=== PATIENT | female | born 2000 | race Caucasian/White ===

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

== ENCOUNTER 2022-08-07 07:24 | Emergency (ER) | payer OTHER ==
[~2022-08-07] VITALS: Ht 162.6 cm; Wt 65.5 kg
[~2022-08-07 07:24] MED LIST: ONDA4TAB6 PO
[2022-08-07 07:25] VITALS: BP 129/99
[2022-08-07] MEDS ORDERED: BACT800T5 PO (11:30)
[2022-08-07] MEDS ORDERED: PYRI1TAB5 PO (11:33)
== END 2022-08-07 11:47 | disposition home or self-care (01) ==
LOC: M ED 07:24
DX: N39.0 Urinary tract infection, site not specified (principal); B95.8 Unspecified staphylococcus as the cause of diseases classified elsewhere

== ENCOUNTER 2022-08-10 12:10 | Emergency (ER) | payer OTHER ==
[~2022-08-10] VITALS: Ht 162.6 cm; Wt 64.4 kg
[~2022-08-10 12:10] MED LIST changes: +BACT800T5 PO; +PYRI1TAB5 PO
[2022-08-10 17:06] LABS: BASO # 0.1 10^3/uL (0.0-0.2); BASO % 0.5 % (0.0-1.0); EOS # 0.1 10^3/uL (0.0-0.5); EOS % 0.7 % (0.0-3.0); HEMATOCRIT 49.5 % (36.0-47.0); HEMOGLOBIN 16.4 g/dl (12.0-15.5); LYMPH # 1.9 10^3/uL (1.5-5.0); LYMPH % 19.7 % (24.0-44.0); MEAN CORPUSCULAR HEMOGLOBIN 29.2 pg (27.0-33.0); MEAN CORPUSCULAR HGB CONC 33.1 g/dl (32.0-36.5); MEAN CORPUSCULAR VOLUME 88.2 fl (80.0-96.0); MONO # 0.5 10^3/uL (0.0-0.8); MONO % 5.5 % (2.0-8.0); NEUTROPHILS # 6.9 10^3/uL (1.5-8.5); NEUTROPHILS % 73.4 % (36.0-66.0); PLATELET COUNT, AUTOMATED 304 10^3/uL (150-450); RED BLOOD COUNT 5.61 10^6/uL (4.00-5.40); WHITE BLOOD COUNT 9.4 10^3/uL (4.0-10.0)
[2022-08-10] MEDS ORDERED: ZOLO50TA PO (17:08)
[2022-08-10] MEDS ORDERED: NS 1,000 ML IV ONE (17:35)
[2022-08-10] MEDS ORDERED: KETOROLAC 30 MG/ML 1ML VIAL IV ONE (17:35)
[2022-08-10 17:39] LABS: BLOOD UREA NITROGEN 15 MG/DL (9-23); CALCIUM LEVEL 9.8 MG/DL (8.5-10.1); CARBON DIOXIDE LEVEL 24 MMOL/L (20-31); CHLORIDE LEVEL 100 MMOL/L (98-107); CREATININE FOR GFR 0.74 MG/DL (0.55-1.30); GLUCOSE, FASTING 73 MG/DL (60-100); POTASSIUM SERUM 4.2 MMOL/L (3.5-5.1); SODIUM LEVEL 135 MMOL/L (136-145)
[2022-08-10 18:18] VITALS: BP 132/80
[2022-08-10] MEDS ORDERED: CIPR-249 PO ×2 (18:18→18:23)
== END 2022-08-10 18:32 | disposition home or self-care (01) ==
LOC: M ED 12:10
DX: N39.0 Urinary tract infection, site not specified (principal); Z79.899 Other long term (current) drug therapy

== ENCOUNTER 2022-08-31 17:44 | Inpatient (IN) | payer OTHER ==
[~2022-08-31] VITALS: Ht 162.6 cm; Wt 62.8 kg
[~2022-08-31 17:44] MED LIST changes: +CIPR-249 PO; +ZOLO50TA PO
[2022-08-31 18:28] LABS: HEMATOCRIT 45.7 % (36.0-47.0); HEMOGLOBIN 15.3 g/dl (12.0-15.5); MEAN CORPUSCULAR HEMOGLOBIN 29.8 pg (27.0-33.0); MEAN CORPUSCULAR HGB CONC 33.5 g/dl (32.0-36.5); MEAN CORPUSCULAR VOLUME 89.1 fl (80.0-96.0); PLATELET COUNT, AUTOMATED 281 10^3/uL (150-450); RED BLOOD COUNT 5.13 10^6/uL (4.00-5.40); WHITE BLOOD COUNT 8.5 10^3/uL (4.0-10.0)
[2022-08-31] MEDS ORDERED: SERT150C PO (18:43)
[2022-08-31 19:12] LABS: ETHYL ALCOHOL (ETHANOL) 0.006 % (0.000-0.010)
[2022-08-31 19:13] LABS: ACETAMINOPHEN LEVEL < 2.0 UG/ML (10.0-20.0)
[2022-08-31 19:14] LABS: ALBUMIN 4.1 G/DL (3.2-5.2); ALKALINE PHOSPHATASE 68 U/L (46-116); ALT/SGPT 14 U/L (7.0-40); AST/SGOT 20 U/L (<34); BILIRUBIN,DIRECT < 0.1 MG/DL (<0.4); BILIRUBIN,TOTAL 0.3 MG/DL (0.3-1.2); BLOOD UREA NITROGEN 13 MG/DL (9-23); CARBON DIOXIDE LEVEL 27 MMOL/L (20-31); CHLORIDE LEVEL 103 MMOL/L (98-107); CREATININE FOR GFR 0.67 MG/DL (0.55-1.30); GLUCOSE, FASTING 92 MG/DL (60-100); POTASSIUM SERUM 3.7 MMOL/L (3.5-5.1); SALICYLATE LEVEL < 3.0 MG/DL (<30); SODIUM LEVEL 138 MMOL/L (136-145); TOTAL PROTEIN 7.6 G/DL (5.7-8.2)
[2022-08-31 19:18] LABS: HCG, SERUM QUALITATIVE NEGATIVE (NEGATIVE); THYROID STIMULATING HORMONE 1.183 uIU/ML (0.48-4.17)
[2022-08-31 19:59] LABS: AMPHETAMINES LEVEL URINE NEGATIVE (NEGATIVE)
[2022-08-31 20:00] LABS: BARBITURATES URINE NEGATIVE (NEGATIVE); BENZODIAZEPINES URINE NEGATIVE (NEGATIVE); CANNABINOIDS URINE NEGATIVE (NEGATIVE); COCAINE METABOLITE URINE NEGATIVE (NEGATIVE); METHADONE URINE NEGATIVE (NEGATIVE); OPIATES URINE NEGATIVE (NEGATIVE); PHENCYCLIDINE URINE NEGATIVE (NEGATIVE)
[2022-08-31] MEDS ORDERED: RIBO400T PO (20:18)
[2022-08-31] MEDS ORDERED: FERR1TAB8 PO (20:18)
[2022-08-31] MEDS ORDERED: MELA3TAB49 PO (20:18)
[2022-08-31] MEDS ORDERED: MAGN200T PO (20:18)
[2022-08-31] MEDS ORDERED: VITA500C24 PO (20:18)
[2022-08-31] MEDS ORDERED: HOME MED LIST COMPLETE! XX SCH (20:20)
[2022-08-31] MEDS: ASCORBIC ACID 500 MG TAB PO SCH (22:46)
[2022-08-31] MEDS: SERTRALINE HCL 50 MG TAB PO SCH (22:46)
[2022-08-31] MEDS: FERROUS SULFATE 325MG TAB PO SCH (22:46)
[2022-09-01] MEDS: ASCORBIC ACID 500 MG TAB PO SCH ×2 (10:27→21:30)
[2022-09-01] MEDS: FERROUS SULFATE 325MG TAB PO SCH ×2 (10:27→21:30)
[2022-09-01] MEDS: MAGNESIUM OXIDE 400MG TAB (MAG-OX) PO SCH (10:27)
[2022-09-01] MEDS: SERTRALINE HCL 50 MG TAB PO SCH (21:30)
[2022-09-02] MEDS: FERROUS SULFATE 325MG TAB PO SCH ×2 (08:08→22:11)
[2022-09-02] MEDS: MAGNESIUM OXIDE 400MG TAB (MAG-OX) PO SCH (08:08)
[2022-09-02] MEDS: ASCORBIC ACID 500 MG TAB PO SCH ×2 (08:08→22:11)
[2022-09-02] MEDS: SERTRALINE HCL 50 MG TAB PO SCH (22:11)
[2022-09-03] MEDS ORDERED: PILL CUTTER 1 EACH XX ONE (10:51)
[2022-09-03] MEDS: FERROUS SULFATE 325MG TAB PO SCH ×2 (10:52→20:24)
[2022-09-03] MEDS: MAGNESIUM OXIDE 400MG TAB (MAG-OX) PO SCH (10:53)
[2022-09-03] MEDS: ASCORBIC ACID 500 MG TAB PO SCH ×2 (10:53→20:24)
[2022-09-03 12:15] LABS: RSV AMPLIFICATION NEGATIVE (NEGATIVE)
[2022-09-03] MEDS ORDERED: MAALOX 30 ML SUSP *UDC PO PRN (16:40)
[2022-09-03] MEDS ORDERED: ACETAMINOPHEN TAB 650MG DOSE (2X325MG) PO PRN (16:40)
[2022-09-03] MEDS ORDERED: MOM 30ML SUSPENSION UDC PO PRN (16:40)
[2022-09-03] MEDS ORDERED: NICOTINE 21MG/24HR 1 EA TRANSDERMAL TD PRN (16:40)
[2022-09-03] MEDS ORDERED: traZODone 50 MG TAB PO PRN (16:40)
[2022-09-03 18:09] VITALS: BP 129/73
[2022-09-03] MEDS: SERTRALINE HCL 50 MG TAB PO SCH (20:24)
[2022-09-04 06:00] VITALS: BP 160/60
[2022-09-04] MEDS: FERROUS SULFATE 325MG TAB PO SCH ×2 (09:00→21:10)
[2022-09-04] MEDS: MAGNESIUM OXIDE 400MG TAB (MAG-OX) PO SCH (09:00)
[2022-09-04] MEDS: busPIRone 5 MG TAB PO SCH ×2 (11:57→21:10)
[2022-09-04 18:09] VITALS: BP 111/60
[2022-09-04] MEDS: SERTRALINE HCL 50 MG TAB PO SCH (21:10)
[2022-09-04] MEDS: MIRTAZAPINE 15 MG TAB PO SCH (21:10)
[2022-09-05 06:07] VITALS: BP 109/55
[2022-09-05] MEDS: FERROUS SULFATE 325MG TAB PO SCH ×2 (09:01→21:20)
[2022-09-05] MEDS: MAGNESIUM OXIDE 400MG TAB (MAG-OX) PO SCH (09:03)
[2022-09-05] MEDS: busPIRone 5 MG TAB PO SCH ×2 (09:03→21:20)
[2022-09-05 19:09] VITALS: BP 125/64
[2022-09-05] MEDS: MIRTAZAPINE 15 MG TAB PO SCH (21:20)
[2022-09-05] MEDS: SERTRALINE HCL 50 MG TAB PO SCH (21:20)
[2022-09-06 07:01] VITALS: BP 120/58
[2022-09-06] MEDS: busPIRone 5 MG TAB PO SCH ×2 (09:01→20:00)
[2022-09-06] MEDS: FERROUS SULFATE 325MG TAB PO SCH ×2 (09:01→19:59)
[2022-09-06] MEDS: MAGNESIUM OXIDE 400MG TAB (MAG-OX) PO SCH (09:02)
[2022-09-06] MEDS ORDERED: BUSP5TA PO (09:30)
[2022-09-06] MEDS ORDERED: MIRT-10 PO (09:30)
[2022-09-06] MEDS ORDERED: HYDR-643 PO (09:30)
[2022-09-06 17:45] VITALS: BP 125/57
[2022-09-06] MEDS: SERTRALINE HCL 50 MG TAB PO SCH (19:59)
[2022-09-06] MEDS: MIRTAZAPINE 15 MG TAB PO SCH (20:00)
[2022-09-07 06:20] VITALS: BP 100/62
[2022-09-07] MEDS: MAGNESIUM OXIDE 400MG TAB (MAG-OX) PO SCH (08:46)
[2022-09-07] MEDS: FERROUS SULFATE 325MG TAB PO SCH (08:46)
[2022-09-07] MEDS: busPIRone 5 MG TAB PO SCH (08:46)
== END 2022-09-07 10:28 | disposition home or self-care (01) | DRG 885 ==
LOC: M ED 17:44 → M ED INP 09-03 16:37 → M PSY 09-03 17:40
PROVIDERS: ADMIT Psychiatry & Neurology Psychiatry; ATTEND Psychiatry & Neurology Psychiatry
DX: F32.1 Major depressive disorder, single episode, moderate (principal); R45.851 Suicidal ideations; F43.10 Post-traumatic stress disorder, unspecified; F41.9 Anxiety disorder, unspecified; G47.00 Insomnia, unspecified; Z91.52 Personal history of nonsuicidal self-harm; Z62.810 Personal history of physical and sexual abuse in childhood; Z63.5 Disruption of family by separation and divorce; Z91.410 Personal history of adult physical and sexual abuse; Z91.411 Personal history of adult psychological abuse; Z20.822 Contact with and (suspected) exposure to COVID-19; Z79.899 Other long term (current) drug therapy; Z63.8 Other specified problems related to primary support group

== ENCOUNTER 2022-12-25 17:53 | Inpatient (IN) | payer OTHER ==
[~2022-12-25] VITALS: Ht 162.6 cm; Wt 71.6 kg
[~2022-12-25 17:53] MED LIST changes: +BUSP5TA PO; +FERR1TAB8 PO; +HYDR-643 PO; +MAGN200T PO; +MELA3TAB49 PO; +MIRT-10 PO; +RIBO400T PO; +SERT150C PO; +VITA500C24 PO
[2022-12-25 19:01] LABS: HEMATOCRIT 44.9 % (36.0-47.0); HEMOGLOBIN 15.1 g/dl (12.0-15.5); MEAN CORPUSCULAR HEMOGLOBIN 30.3 pg (27.0-33.0); MEAN CORPUSCULAR HGB CONC 33.6 g/dl (32.0-36.5); MEAN CORPUSCULAR VOLUME 90.2 fl (80.0-96.0); PLATELET COUNT, AUTOMATED 260 10^3/uL (150-450); RED BLOOD COUNT 4.98 10^6/uL (4.00-5.40); WHITE BLOOD COUNT 7.6 10^3/uL (4.0-10.0)
[2022-12-25 19:21] LABS: ETHYL ALCOHOL (ETHANOL) < 0.003 % (0.000-0.010)
[2022-12-25 19:22] LABS: ACETAMINOPHEN LEVEL < 2.0 UG/ML (10.0-20.0); HCG, SERUM QUALITATIVE NEGATIVE (NEGATIVE); SALICYLATE LEVEL < 3.0 MG/DL (<30)
[2022-12-25 19:23] LABS: ALBUMIN 4.2 G/DL (3.2-5.2); ALKALINE PHOSPHATASE 60 U/L (46-116); ALT/SGPT 15 U/L (7.0-40); AST/SGOT 14 U/L (<34); BILIRUBIN,DIRECT 0.2 MG/DL (<0.4); BILIRUBIN,TOTAL 0.6 MG/DL (0.3-1.2); BLOOD UREA NITROGEN 15 MG/DL (9-23); CALCIUM LEVEL 8.9 MG/DL (8.5-10.1); CARBON DIOXIDE LEVEL 28 MMOL/L (20-31); CHLORIDE LEVEL 106 MMOL/L (98-107); CREATININE FOR GFR 0.76 MG/DL (0.55-1.30); GLUCOSE, FASTING 83 MG/DL (60-100); POTASSIUM SERUM 4.4 MMOL/L (3.5-5.1); SODIUM LEVEL 143 MMOL/L (136-145); TOTAL PROTEIN 7.3 G/DL (5.7-8.2)
[2022-12-25 19:26] LABS: THYROID STIMULATING HORMONE 1.243 uIU/ML (0.48-4.17)
[2022-12-25 21:58] LABS: AMPHETAMINES LEVEL URINE NEGATIVE (NEGATIVE); BARBITURATES URINE NEGATIVE (NEGATIVE); BENZODIAZEPINES URINE NEGATIVE (NEGATIVE); CANNABINOIDS URINE NEGATIVE (NEGATIVE); COCAINE METABOLITE URINE NEGATIVE (NEGATIVE); METHADONE URINE NEGATIVE (NEGATIVE); OPIATES URINE NEGATIVE (NEGATIVE); PHENCYCLIDINE URINE NEGATIVE (NEGATIVE)
[2022-12-26] MEDS ORDERED: MAGN400T35 PO (00:22)
[2022-12-26] MEDS ORDERED: MULTTAB20 PO (00:22)
[2022-12-26] MEDS ORDERED: VITA100093 PO (00:22)
[2022-12-26] MEDS ORDERED: TRAN650T PO (00:23)
[2022-12-26] MEDS ORDERED: HOME MED LIST COMPLETE! XX SCH (00:25)
[2022-12-26] MEDS ORDERED: ACETAMINOPHEN TAB 650MG DOSE (2X325MG) PO PRN (06:50)
[2022-12-26] MEDS ORDERED: NICOTINE 21MG/24HR 1 EA TRANSDERMAL TD PRN (06:50)
[2022-12-26] MEDS ORDERED: traZODone 50 MG TAB PO PRN (06:50)
[2022-12-26] MEDS ORDERED: MOM 30ML SUSPENSION UDC PO PRN (06:50)
[2022-12-26] MEDS ORDERED: MAALOX 30 ML SUSP *UDC PO PRN (06:50)
[2022-12-26] MEDS ORDERED: LORazepam 1 MG TAB PO PRN (06:50)
[2022-12-26 10:17] VITALS: BP 113/63; TEMP 97.9; O2SAT 99
[2022-12-26] MEDS ORDERED: TRANEXAMIC ACID 650MG TABLET (LYSTEDA) PO SCH (16:00)
[2022-12-26 18:07] VITALS: BP 108/57; TEMP 97.3; O2SAT 99
[2022-12-26] MEDS: MIRTAZAPINE 15 MG TAB PO SCH (21:29)
[2022-12-26] MEDS: FERROUS SULFATE 325MG TAB PO SCH (21:29)
[2022-12-26] MEDS: ASCORBIC ACID 500 MG TAB PO SCH (21:29)
[2022-12-27 06:34] VITALS: BP 127/62; TEMP 98.2; O2SAT 98
[2022-12-27] MEDS ORDERED: ENTER DRUG NAME HERE (PATIENT'S OWN MED) PO SCH (09:00)
[2022-12-27] MEDS: MAGNESIUM OXIDE 400MG TAB (MAG-OX) PO SCH (09:25)
[2022-12-27] MEDS: ASCORBIC ACID 500 MG TAB PO SCH ×2 (09:25→20:42)
[2022-12-27] MEDS: VITAMIN D 1,000 INTERNATIONAL UNITS TABLET PO SCH (09:25)
[2022-12-27] MEDS: FERROUS SULFATE 325MG TAB PO SCH ×2 (09:25→20:42)
[2022-12-27 18:07] VITALS: BP 124/68; TEMP 96.8
[2022-12-27] MEDS: MIRTAZAPINE 15 MG TAB PO SCH (20:42)
[2022-12-28 06:36] VITALS: BP 116/68; TEMP 96.9; O2SAT 100
[2022-12-28] MEDS: MAGNESIUM OXIDE 400MG TAB (MAG-OX) PO SCH (09:06)
[2022-12-28] MEDS: ASCORBIC ACID 500 MG TAB PO SCH ×2 (09:06→20:31)
[2022-12-28] MEDS: FERROUS SULFATE 325MG TAB PO SCH ×2 (09:06→20:31)
[2022-12-28] MEDS: VITAMIN D 1,000 INTERNATIONAL UNITS TABLET PO SCH (09:06)
[2022-12-28] MEDS: FLUoxetine 10 MG CAP PO SCH (11:15)
[2022-12-28 19:16] VITALS: BP 120/74; TEMP 97.5
[2022-12-28] MEDS: MIRTAZAPINE 15 MG TAB PO SCH (20:31)
[2022-12-28] MEDS: PRAZOSIN 1 MG CAP PO SCH (20:31)
[2022-12-29 06:13] VITALS: BP 105/53; TEMP 97.5; O2SAT 99
[2022-12-29] MEDS: VITAMIN D 1,000 INTERNATIONAL UNITS TABLET PO SCH (08:47)
[2022-12-29] MEDS: FLUoxetine 10 MG CAP PO SCH (08:47)
[2022-12-29] MEDS: FERROUS SULFATE 325MG TAB PO SCH ×2 (08:47→20:47)
[2022-12-29] MEDS: ASCORBIC ACID 500 MG TAB PO SCH ×2 (08:47→20:46)
[2022-12-29] MEDS: MAGNESIUM OXIDE 400MG TAB (MAG-OX) PO SCH (08:48)
[2022-12-29 18:00] VITALS: BP 132/63; TEMP 96.1
[2022-12-29] MEDS: MIRTAZAPINE 15 MG TAB PO SCH (20:47)
[2022-12-29] MEDS: PRAZOSIN 1 MG CAP PO SCH (20:47)
[2022-12-30 06:15] VITALS: BP 100/52; TEMP 98.1; O2SAT 98
[2022-12-30] MEDS: FLUoxetine 10 MG CAP PO SCH (08:52)
[2022-12-30] MEDS: ASCORBIC ACID 500 MG TAB PO SCH ×2 (08:53→21:37)
[2022-12-30] MEDS: FERROUS SULFATE 325MG TAB PO SCH ×2 (08:53→21:37)
[2022-12-30] MEDS: VITAMIN D 1,000 INTERNATIONAL UNITS TABLET PO SCH (08:53)
[2022-12-30] MEDS: MAGNESIUM OXIDE 400MG TAB (MAG-OX) PO SCH (08:53)
[2022-12-30 18:00] VITALS: BP 123/72; TEMP 98.4
[2022-12-30] MEDS: MIRTAZAPINE 15 MG TAB PO SCH (21:37)
[2022-12-30] MEDS: PRAZOSIN 1 MG CAP PO SCH (21:37)
[2022-12-31 05:59] VITALS: BP 118/60; TEMP 97.5; O2SAT 96
[2022-12-31] MEDS: VITAMIN D 1,000 INTERNATIONAL UNITS TABLET PO SCH (08:57)
[2022-12-31] MEDS: FLUoxetine 10 MG CAP PO SCH (08:58)
[2022-12-31] MEDS: MAGNESIUM OXIDE 400MG TAB (MAG-OX) PO SCH (08:58)
[2022-12-31] MEDS: FERROUS SULFATE 325MG TAB PO SCH ×2 (08:58→21:04)
[2022-12-31] MEDS: ASCORBIC ACID 500 MG TAB PO SCH ×2 (08:58→21:04)
[2022-12-31 16:36] VITALS: BP 117/72; TEMP 98.2; O2SAT 94
[2022-12-31] MEDS: MIRTAZAPINE 15 MG TAB PO SCH (21:04)
[2022-12-31] MEDS: traZODone 50 MG TAB PO PRN (21:04)
[2022-12-31] MEDS: PRAZOSIN 1 MG CAP PO SCH (21:05)
[2023-01-01 06:51] VITALS: BP 151/69; TEMP 97.9; O2SAT 96
[2023-01-01] MEDS: VITAMIN D 1,000 INTERNATIONAL UNITS TABLET PO SCH (08:10)
[2023-01-01] MEDS: MAGNESIUM OXIDE 400MG TAB (MAG-OX) PO SCH (08:10)
[2023-01-01] MEDS: FERROUS SULFATE 325MG TAB PO SCH ×2 (08:10→20:06)
[2023-01-01] MEDS: ASCORBIC ACID 500 MG TAB PO SCH ×2 (08:10→20:06)
[2023-01-01] MEDS: FLUoxetine 20MG CAP PO SCH (08:10)
[2023-01-01 16:07] VITALS: BP 119/63; TEMP 98.3; O2SAT 96
[2023-01-01] MEDS: traZODone 50 MG TAB PO PRN (20:06)
[2023-01-01] MEDS: MIRTAZAPINE 15 MG TAB PO SCH (20:06)
[2023-01-01 20:07] VITALS: BP 122/68
[2023-01-01] MEDS: PRAZOSIN 1 MG CAP PO SCH (20:07)
[2023-01-02 06:26] VITALS: BP 125/74; TEMP 97.2; O2SAT 97
[2023-01-02] MEDS: FLUoxetine 20MG CAP PO SCH (08:40)
[2023-01-02] MEDS: ASCORBIC ACID 500 MG TAB PO SCH (08:40)
[2023-01-02] MEDS: VITAMIN D 1,000 INTERNATIONAL UNITS TABLET PO SCH (08:40)
[2023-01-02] MEDS: MAGNESIUM OXIDE 400MG TAB (MAG-OX) PO SCH (08:40)
[2023-01-02] MEDS: FERROUS SULFATE 325MG TAB PO SCH (08:40)
[2023-01-02] MEDS ORDERED: FLUO20CA22 PO (09:21)
[2023-01-02] MEDS ORDERED: TRAZ-252 PO (09:21)
[2023-01-02] MEDS ORDERED: MINI1CAP PO (09:21)
[2023-01-02] MEDS ORDERED: MIRT-10 PO (09:21)
== END 2023-01-02 13:05 | disposition home or self-care (01) | DRG 881 ==
LOC: M ED 17:53 → M ED INP 12-26 05:11 → M PSY 12-26 08:41
PROVIDERS: ADMIT Psychiatry & Neurology Psychiatry; ATTEND Student in an Organized Health Care Education/Training Program
DX: F32.A Depression, unspecified (principal); R45.851 Suicidal ideations; F43.9 Reaction to severe stress, unspecified; G89.29 Other chronic pain; R10.2 Pelvic and perineal pain; M79.671 Pain in right foot; F60.3 Borderline personality disorder; Z62.810 Personal history of physical and sexual abuse in childhood; Z79.899 Other long term (current) drug therapy

== ENCOUNTER 2023-06-26 10:00 | Day surgery (SDC) | payer OTHER ==
[~2023-06-26] VITALS: Ht 162.6 cm; Wt 75.9 kg
[~2023-06-26 10:00] MED LIST changes: +ACETAMINOPHEN *IV* 1,000 MG in IV 0 EA IV ONE; +FLUO20CA22 PO; +LR 1,000 ML IV SCH; +MAGN400T35 PO; +MINI1CAP PO; +MULTTAB20 PO; +TRAN650T PO; +TRAZ-252 PO; +VITA100093 PO
[2023-06-26] MEDS ORDERED: LR 1,000 ML IV SCH (10:30)
[2023-06-26 10:41] LABS: HEMATOCRIT 45.7 % (36.0-47.0); HEMOGLOBIN 15.7 g/dl (12.0-15.5); MEAN CORPUSCULAR HEMOGLOBIN 31.3 pg (27.0-33.0); MEAN CORPUSCULAR HGB CONC 34.4 g/dl (32.0-36.5); MEAN CORPUSCULAR VOLUME 91.2 fl (80.0-96.0); PLATELET COUNT, AUTOMATED 326 10^3/uL (150-450); RED BLOOD COUNT 5.01 10^6/uL (4.00-5.40); WHITE BLOOD COUNT 7.9 10^3/uL (4.0-10.0)
[2023-06-26] MEDS ORDERED: fentaNYL 100 MCG/2 ML INJECTION As Ordered ONE (11:40)
[2023-06-26] MEDS ORDERED: MIDAZOLAM INJ 2MG/2ML VIAL As Ordered ONE (11:40)
[2023-06-26] MEDS ORDERED: propofoL 200 MG/20 ML VIAL As Ordered ONE (11:41)
[2023-06-26] MEDS ORDERED: ONDANSETRON 4MG 2ML VIAL As Ordered ONE (11:41)
[2023-06-26] MEDS ORDERED: SUGAMMADEX SODIUM 500 MG/5 ML VIAL (BRIDION) As Ordered ONE (11:41)
[2023-06-26] MEDS ORDERED: ROCURONIUM BROMIDE 50MG/5ML VIAL As Ordered ONE (11:41)
[2023-06-26] MEDS ORDERED: LIDOCAINE 2% 100MG/5ML SDV (FOR ANES.) As Ordered ONE (11:41)
[2023-06-26] MEDS ORDERED: KETOROLAC 60MG 2ML VIAL As Ordered ONE (11:42)
[2023-06-26] MEDS ORDERED: HYDROmorphone HCL 2MG/ML 1ML VIAL As Ordered ONE (13:29)
[2023-06-26] MEDS ORDERED: oxyCODONE 5MG TAB PO PRN (13:45)
[2023-06-26] MEDS ORDERED: MORPHINE 2 MG/ML 1ML VIAL IV PRN (13:45)
[2023-06-26] MEDS ORDERED: fentaNYL 100 MCG/2 ML INJECTION IV PRN (13:45)
[2023-06-26] MEDS ORDERED: ONDANSETRON 4MG 2ML VIAL IV PRN (13:45)
[2023-06-26 15:20] VITALS: BP 131/72; TEMP 99.4; O2SAT 95
== END 2023-06-26 15:55 | disposition home or self-care (01) ==
LOC: M SDC 10:00
PROVIDERS: ATTEND Obstetrics & Gynecology
DX: N73.6 Female pelvic peritoneal adhesions (postinfective) (principal); R10.2 Pelvic and perineal pain; F41.9 Anxiety disorder, unspecified; F32.A Depression, unspecified; Z79.899 Other long term (current) drug therapy
CPT/HCPCS: 36415; 49320; 81025; 85027; 86850; 86900; 86901; J0665; J1100; J1170; J1885; J2250; J2405; J3010

== ENCOUNTER → 2023-11-25 | Outpatient (REF) | payer OTHER ==
[~2023-11-25] MED LIST changes: -ACETAMINOPHEN *IV* 1,000 MG in IV 0 EA IV ONE; -LR 1,000 ML IV SCH
[2023-11-25 14:07] LABS: BASO # 0.1 10^3/uL (0.0-0.2); BASO % 0.8 % (0.0-1.0); EOS # 0.1 10^3/uL (0.0-0.5); HEMATOCRIT 45.7 % (36.0-47.0); LYMPH % 30.4 % (24.0-44.0); MEAN CORPUSCULAR HEMOGLOBIN 30.2 pg (27.0-33.0); MEAN CORPUSCULAR HGB CONC 32.8 g/dl (32.0-36.5); MONO # 0.4 10^3/uL (0.0-0.8); MONO % 6.1 % (2.0-8.0); NEUTROPHILS # 3.9 10^3/uL (1.5-8.5); NEUTROPHILS % 60.5 % (36.0-66.0); PLATELET COUNT, AUTOMATED 333 10^3/uL (150-450); RED BLOOD COUNT 4.97 10^6/uL (4.00-5.40); WHITE BLOOD COUNT 6.4 10^3/uL (4.0-10.0)
[2023-11-25 14:38] LABS: PERCENT SATURATION 19.1 % (13.2-45.0)
[2023-11-25 14:40] LABS: FREE T4 0.97 NG/DL (0.89-1.76); THYROID STIMULATING HORMONE 1.111 uIU/ML (0.55-4.78)
[2023-11-25 14:41] LABS: FOLATE 12.1 NG/ML (>5.4)
== END ==
LOC: M LABWUC 12:17
PROVIDERS: ATTEND Student in an Organized Health Care Education/Training Program
DX: R53.83 Other fatigue (principal)

== ENCOUNTER 2023-12-03 09:37 | Inpatient (IN) | payer OTHER ==
[~2023-12-03] VITALS: Ht 162.6 cm; Wt 67.1 kg
[2023-12-03] MEDS ORDERED: FLUO40CA PO (09:45)
[2023-12-03 11:48] LABS: BASO % 0.7 % (0.0-1.0); EOS # 0.1 10^3/uL (0.0-0.5); EOS % 1.5 % (0.0-3.0); HEMATOCRIT 43.9 % (36.0-47.0); LYMPH # 1.8 10^3/uL (1.5-5.0); LYMPH % 33.1 % (24.0-44.0); MEAN CORPUSCULAR HEMOGLOBIN 30.2 pg (27.0-33.0); MEAN CORPUSCULAR HGB CONC 34.2 g/dl (32.0-36.5); MEAN CORPUSCULAR VOLUME 88.3 fl (80.0-96.0); MONO # 0.4 10^3/uL (0.0-0.8); MONO % 6.7 % (2.0-8.0); NEUTROPHILS # 3.2 10^3/uL (1.5-8.5); NEUTROPHILS % 57.8 % (36.0-66.0); PLATELET COUNT, AUTOMATED 281 10^3/uL (150-450); RED BLOOD COUNT 4.97 10^6/uL (4.00-5.40); WHITE BLOOD COUNT 5.5 10^3/uL (4.0-10.0)
[2023-12-03 12:20] LABS: ALBUMIN 3.4 G/DL (3.2-5.2); ALKALINE PHOSPHATASE 68 U/L (46-116); ALT/SGPT 12 U/L (7.0-40); AST/SGOT 10 U/L (<34); BILIRUBIN,TOTAL 0.3 MG/DL (0.3-1.2); BLOOD UREA NITROGEN 10 MG/DL (9-23); CALCIUM LEVEL 8.9 MG/DL (8.5-10.1); CARBON DIOXIDE LEVEL 28 MMOL/L (20-31); CHLORIDE LEVEL 104 MMOL/L (98-107); CREATININE FOR GFR 0.62 MG/DL (0.55-1.30); GLOMERULAR FILTRATION RATE > 60.0 (>60); GLUCOSE, FASTING 84 MG/DL (60-100); POTASSIUM SERUM 4.2 MMOL/L (3.5-5.1); SODIUM LEVEL 139 MMOL/L (136-145); TOTAL PROTEIN 7.1 G/DL (5.7-8.2)
[2023-12-03 13:05] LABS: MAGNESIUM LEVEL 1.8 MG/DL (1.8-2.4)
[2023-12-03 13:09] LABS: THYROID STIMULATING HORMONE 1.145 uIU/ML (0.55-4.78); THYROXINE (T4) 7.8 UG/DL (4.5-10.9)
[2023-12-03] MEDS: NS 1,000 ML IV ONE (15:18)
[2023-12-03] MEDS: MECLIZINE 25 MG TABLET PO ONE (15:18)
[2023-12-03] MEDS: diazePAM 5MG TABLET PO ONE (16:26)
[2023-12-03] MEDS ORDERED: FLUO20CA22 PO (16:49)
[2023-12-03] MEDS ORDERED: HOME MED LIST COMPLETE! XX SCH (16:50)
[2023-12-03 20:39] LABS: VITAMIN B12 LEVEL 680 PG/ML (211-911)
[2023-12-03] MEDS: FLUoxetine 20MG CAP PO SCH (22:48)
[2023-12-04] MEDS: SCOPOLAMINE 1MG TRANSDERMAL PATCH TOP ONE (00:22)
[2023-12-04 05:32] LABS: HEMATOCRIT 44.2 % (36.0-47.0); MEAN CORPUSCULAR HEMOGLOBIN 30.1 pg (27.0-33.0); MEAN CORPUSCULAR HGB CONC 33.9 g/dl (32.0-36.5); MEAN CORPUSCULAR VOLUME 88.8 fl (80.0-96.0); PLATELET COUNT, AUTOMATED 291 10^3/uL (150-450); RED BLOOD COUNT 4.98 10^6/uL (4.00-5.40); WHITE BLOOD COUNT 6.9 10^3/uL (4.0-10.0)
[2023-12-04 06:01] LABS: BLOOD UREA NITROGEN 10 MG/DL (9-23); CALCIUM LEVEL 8.5 MG/DL (8.5-10.1); CARBON DIOXIDE LEVEL 27 MMOL/L (20-31); CHLORIDE LEVEL 105 MMOL/L (98-107); CREATININE FOR GFR 0.66 MG/DL (0.55-1.30); GLOMERULAR FILTRATION RATE > 60.0 (>60); GLUCOSE, FASTING 81 MG/DL (60-100); POTASSIUM SERUM 3.9 MMOL/L (3.5-5.1); SODIUM LEVEL 137 MMOL/L (136-145)
[2023-12-04] MEDS: ENOXAPARIN 40MG/0.4ML SYRINGE (J1650 PER 10MG) SC SCH (09:00)
[2023-12-04] MEDS: MIDODRINE 5 MG TAB PO SCH (09:56)
[2023-12-04 11:06] LABS: INR 1.06; PARTIAL THROMBOPLASTIN TIME 28.6 SECONDS (24.8-34.2); PROTHROMBIN TIME 13.5 SECONDS (12.5-14.5)
[2023-12-04 14:33] VITALS: BP 102/60; TEMP 98.2; O2SAT 98
[2023-12-04 18:00] VITALS: BP 124/71; TEMP 98.2; O2SAT 99
[2023-12-04 20:45] VITALS: BP 117/71; TEMP 97.9; O2SAT 98
[2023-12-04 23:55] VITALS: BP 101/60; TEMP 98.2; O2SAT 98
[2023-12-05 04:57] VITALS: BP 114/70; TEMP 97.7; O2SAT 98
[2023-12-05 10:00] VITALS: BP 119/73; TEMP 98.2; O2SAT 99
[2023-12-05] MEDS: FLUDROCORTISONE ACETATE 0.1 MG TAB PO SCH (10:05)
[2023-12-05 14:20] VITALS: BP 115/73; TEMP 98.4; O2SAT 97
[2023-12-05] MEDS: MECLIZINE 25 MG TABLET PO ONE (14:46)
[2023-12-05] MEDS ORDERED: MECLIZINE 25 MG TABLET PO PRN (20:00)
[2023-12-05 21:00] VITALS: BP 118/73; TEMP 98.2; O2SAT 97
[2023-12-06 06:26] VITALS: BP 101/57; TEMP 97.5; O2SAT 94
[2023-12-06] MEDS ORDERED: MECL-86 PO (10:38)
[2023-12-06] MEDS ORDERED: FLUD0.1T PO (10:38)
== END 2023-12-06 14:30 | disposition home or self-care (01) | DRG 93 ==
LOC: M ED 09:37 → M ED INP 21:59 → M MSPAV 12-04 14:18
PROVIDERS: ADMIT Family Medicine; ATTEND Internal Medicine
DX: G90.A Postural orthostatic tachycardia syndrome [POTS] (principal); F32.A Depression, unspecified; F41.9 Anxiety disorder, unspecified; Z79.899 Other long term (current) drug therapy; R10.2 Pelvic and perineal pain; H57.052 Tonic pupil, left eye; R42 Dizziness and giddiness

== ENCOUNTER 2023-12-13 10:35 | Emergency (ER) | payer OTHER ==
[~2023-12-13] VITALS: Ht 162.6 cm; Wt 65.0 kg
[~2023-12-13 10:35] MED LIST changes: +FLUD0.1T PO; +FLUO40CA PO; +MECL-86 PO
[2023-12-13 12:53] LABS: BLOOD UREA NITROGEN 17 MG/DL (9-23); CALCIUM LEVEL 9.5 MG/DL (8.5-10.1); CARBON DIOXIDE LEVEL 25 MMOL/L (20-31); CHLORIDE LEVEL 104 MMOL/L (98-107); CREATININE FOR GFR 0.56 MG/DL (0.55-1.30); GLOMERULAR FILTRATION RATE > 60.0 (>60); GLUCOSE, FASTING 86 MG/DL (60-100); POTASSIUM SERUM 3.6 MMOL/L (3.5-5.1); SODIUM LEVEL 138 MMOL/L (136-145)
[2023-12-13 12:57] VITALS: TEMP 97
[2023-12-13 13:11] LABS: BASO % 0.5 % (0.0-1.0); EOS # 0.2 10^3/uL (0.0-0.5); EOS % 2.2 % (0.0-3.0); HEMATOCRIT 44.4 % (36.0-47.0); HEMOGLOBIN 15.4 g/dl (12.0-15.5); MEAN CORPUSCULAR HEMOGLOBIN 30.4 pg (27.0-33.0); MEAN CORPUSCULAR HGB CONC 34.7 g/dl (32.0-36.5); MEAN CORPUSCULAR VOLUME 87.7 fl (80.0-96.0); MONO # 0.6 10^3/uL (0.0-0.8); MONO % 7.2 % (2.0-8.0); NEUTROPHILS # 5.3 10^3/uL (1.5-8.5); NEUTROPHILS % 64.7 % (36.0-66.0); PLATELET COUNT, AUTOMATED 277 10^3/uL (150-450); RED BLOOD COUNT 5.06 10^6/uL (4.00-5.40); WHITE BLOOD COUNT 8.2 10^3/uL (4.0-10.0)
[2023-12-13 13:17] LABS: HCG, SERUM QUALITATIVE NEGATIVE (NEGATIVE)
[2023-12-13] MEDS ORDERED: FLUD0.1T PO (14:44)
[2023-12-13 14:45] VITALS: BP 105/60; O2SAT 97
== END 2023-12-13 15:41 | disposition home or self-care (01) ==
LOC: M ED 10:35
DX: I95.1 Orthostatic hypotension (principal); Z79.810 Long term (current) use of selective estrogen receptor modulators (SERMs); Z79.899 Other long term (current) drug therapy